=== PATIENT | female | born 1975 | race Caucasian/White ===

== ENCOUNTER 2018-10-19 01:41 | Emergency (ER) | payer MEDICAID ==
[~2018-10-19] VITALS: Ht 165.1 cm; Wt 61.2 kg
[2018-10-19] MEDS ORDERED: ARIMIDEX (01:49)
[2018-10-19] MEDS ORDERED: CYMBALTA60 MG (01:49)
[2018-10-19] MEDS ORDERED: AMBIEN 5 MG TABL5 M1 PO (01:50)
[2018-10-19] MEDS ORDERED: METOPROLOL ER PO (01:51)
[2018-10-19] MEDS ORDERED: LOSARTAN PO (01:51)
[2018-10-19] MEDS ORDERED: NORCO 7.5-3251 EACH (01:52)
[2018-10-19] MEDS ORDERED: NAPROSYN500 MG (01:52)
[2018-10-19] MEDS ORDERED: MACROBID 100 M100 M2 (01:52)
[2018-10-19] MEDS ORDERED: CIPRO250 M1 (01:53)
[2018-10-19 01:56] LABS: ABSOLUTE EOSINOPHILS 0.2 thou/uL (0.0-0.7); ABSOLUTE LYMPHOCYTES 1.1 thou/uL (0.8-5.3); ABSOLUTE MONOCYTES 0.6 thou/uL (0.0-1.2); ABSOLUTE NEUTROPHILS 3.9 thou/uL (1.6-8.1); BASOPHILS 0.7 %; EOSINOPHILS 2.6 %; HEMATOCRIT 39.9 % (37.0-47.0); HEMOGLOBIN 13.3 gm/dL (12.0-15.0); MCH 29.3 pg (26.0-34.0); MCHC 33.5 g/dL (28.0-37.0); MCV 87.7 fL (80.0-100.0); MONOCYTES 10.7 %; MPV 9.3 fl. (7.2-11.1); NUCLEATED RBCS 0 /100WBC; PLATELET COUNT* 271 thou/uL (150-400); RBC 4.55 mil/uL (4.20-5.00); RDW-CV 13.4 % (10.5-14.5); WBC 5.8 thou/uL (4.0-11.0)
[2018-10-19 02:08] LABS: ANION GAP 5 mmol/L (7-16); BUN 11 mg/dL (7-18); CALCIUM 9.2 mg/dL (8.5-10.1); CHLORIDE 103 mmol/L (98-107); CO2 32 mmol/L (21-32); CREATININE 0.8 mg/dL (0.6-1.3); GLUCOSE 110 mg/dL (70-99); POTASSIUM 3.6 mmol/L (3.5-5.1); SODIUM 140 mmol/L (136-145)
[2018-10-19 02:15] LABS: ALBUMIN 3.7 g/dL (3.4-5.0); ALKALINE PHOSPHATASE 150 U/L (46-116); LIPASE 124 U/L (73-393); SGOT 17 U/L (15-37); SGPT 19 U/L (30-65); TOTAL BILIRUBIN 0.3 mg/dL (<0.1-1.0); TROPONIN-I LEVEL <0.06 ng/mL (<0.06)
[2018-10-19 02:18] LABS: INR 0.9; PROTIME 9.4 Seconds (9.20-11.50)
[2018-10-19 03:36] LABS: AMP/METHAMP Negative (Negative); BARBITURATES Negative (Negative); BENZODIAZEPINES Negative (Negative); COCAINE Negative (Negative); METHADONE Negative (Negative); OPIATES POSITIVE (Negative); PCP Negative (Negative); THC Negative (Negative)
[2018-10-19] MEDS ORDERED: CLONIDINE0.1 PO (04:40)
[2018-10-19 05:05] VITALS: BP 127/87
--- NOTE | 2018-10-19 09:12 | EKG ---
[place] [address] ELECTROCARDIOGRAM REPORT Name: SIRISHA SORENSON Room: [facility]#: [id number] Admission: 10/19/18 Attend Phys: Discharge: 10/19/18 Date of : 71 Report #: [id number] THIS REPORT FOR: //name// [facility] ED Test Date: 2018-10-19 Test Time: 02:01:23 Pat Name: SIRISHADECLAN SORENSON Department: Room: Gender: F [employer] Ad[employer]er: José Luis MANN : 1975 Requested By: Briana Young Order Number: [id number] MD: Dayron Lucero Measurements Intervals Seanor Rate: 69 P: 47 CT: 147 QRS: 22 QRSD: 104 T: 33 QT: 412 QTc: 442 Interpretive Statements Sinus rhythm No previous ECG available for comparison Electronically Signed On 10-19-2018 9:11:59 PEGGER by Dayron Lucero [email or web address] <ELECTRONICALLY SIGNED> By: Dayron Lucero MD, [facility] 10/19/18 0911 020 0201 Dayron Lucero MD, FACC /EPI
== END 2018-10-19 05:05 | disposition home or self-care (01) ==
LOC: M.ERS 01:41
PROVIDERS: Personal Emergency Response Attendant
DX: I16.0 Hypertensive urgency (principal); I10 Essential (primary) hypertension; Z85.3 Personal history of malignant neoplasm of breast; Z90.49 Acquired absence of other specified parts of digestive tract; Z98.890 Other specified postprocedural states; Z88.1 Allergy status to other antibiotic agents; Z88.2 Allergy status to sulfonamides